=== PATIENT | male | born 2000 | race Caucasian/White ===

== ENCOUNTER → 2020-12-22 18:52 | Outpatient (CLI) | payer OTHER, SELFPAY ==
--- NOTE | ~2020-12-22 | XR_ITS ---
XR thoracic spine 2V DATE: 12/22/2020 19:06 INDICATION: Fall. Back pain. TECHNIQUE: Swimmer's, AP and lateral standing views COMPARISON: None FINDINGS: There is slight dextroscoliosis. No fracture or bone destruction. The thoracic pedicles are intact. No paraspinal soft tissue thickeni ng. IMPRESSION: Slight dextroscoliosis Reviewed, dictated and finalized at location A. IMPRESSION: Slight dextroscoliosis
== END ==
PROVIDERS: Visit Provider Chiropractor
DX: M54.6 Pain in thoracic spine (principal); M99.01 Segmental and somatic dysfunction of cervical region; M99.02 Segmental and somatic dysfunction of thoracic region; M99.03 Segmental and somatic dysfunction of lumbar region; M99.05 Segmental and somatic dysfunction of pelvic region
CPT/HCPCS: 72070